=== PATIENT | female | born 1995 | race Caucasian/White ===

== ENCOUNTER → 2017-07-01 | Outpatient (CLI) | payer BC, OTHER ==
[~2017-07-01] MED LIST: ATOV250T PO; CYAN500T PO; ERGO500011 PO; LEVO1IUD INT UTER
--- NOTE | 2017-07-01 13:53 | DIAGNOSTIC IMAGING REPORT ---
VENOUS DOPPLER LWR EXT BILA CLINICAL HISTORY: 21 years-old Female presenting with SWELLING OF LEFT LOWER EXTREMITY. TECHNIQUE: Real-time grayscale and color and spectral Doppler ultrasound imaging of the veins of the bilateral lower extremities was performed. Compression and augmentation were also utilized. COMPARISON: None. FINDINGS: Right: Common femoral vein: Patent. Greater saphenous vein: Patent. Deep femoral vein: Patent. Femoral vein: Patent. Popliteal vein: Patent. Calf veins: Patent. Left: Common femoral vein: Patent. Greater saphenous vein: Patent. Deep femoral vein: Patent. Femoral vein: Patent. Popliteal vein: Patent. Calf veins: Patent. Other: None. IMPRESSION: No evidence of deep venous thrombosis. Electronically signed by: Galen Ayala M.D. 07/01/2017 1:52 PM Dictated Date/Time: 07/01/2017 1:50 PM
== END | disposition home or self-care (01) ==
LOC: C.ULTRBC 12:44
PROVIDERS: ATTEND Student in an Organized Health Care Education/Training Program
DX: M79.89 Other specified soft tissue disorders (principal); Z78.9 Other specified health status

== ENCOUNTER 2017-07-03 16:27 | Emergency (ER) | payer OTHER ==
[~2017-07-03] VITALS: Ht 167.6 cm; Wt 79.8 kg
[2017-07-03 16:37] VITALS: TEMP 36.8; Ht 167.6 cm; Wt 79.8 kg
[2017-07-03] MEDS ORDERED: CYAN500T PO (18:24)
[2017-07-03] MEDS ORDERED: ERGO500011 PO (18:24)
[2017-07-03] MEDS ORDERED: LEVO1IUD INT UTER (18:24)
[2017-07-03] MEDS ORDERED: ATOV250T PO (18:24)
--- NOTE | 2017-07-03 18:44 | EMERGENCY ROOM VISIT NOTE ---
History First contact with patient: 17:28 Chief Complaint: CHEST PAIN Stated Complaint: CHEST PAIN Nursing Triage Summary: Patient is here on vaction from [facility] in [facility]. Flew here on the , now with chest pain and left leg swelling. Had an ultrasound negative for DVT here for continued evaluation History of Present Illness The patient is a 21 year old female who presents to the Emergency Room with complaints of chest pain. She was sent here for PE workup from her PCP. She started having chest pain one week ago. It was sudden in onset. It is located in her upper left chest. It started one week ago. It was sudden in onset. It is a sharp stabbing pain that does not radiate. Nothing makes the pain worse (ie. exertion, deep inhalation or movements). The pain lasts for 1-2 hours at a time and is intermittent. Nothing makes the pain better and she rates it as a 3-4/10 in severity. Of note she had left calf pain 10 days ago and had an ultrasound on Friday which did not show any DVT. On June 16 she took a 15hr flight from [facility]. She has an IUD in place. She has no family history of clots. Review of Systems CONSTITUTIONAL: No fever, chills, sweats or night sweats. No recent infections. No weight loss or weight gain. NEUROLOGIC: No headaches, dizziness or syncopal episodes. HEENT: No hearing or visual changes. No sinus or nasal issues. No mouth sores, thrush or oral lesions. CARDIOVASCULAR: No chest pain or palpitations. RESPIRATORY: No SOB, dyspnea, cough or hemoptysis. GASTROINTESTINAL: No nausea, vomiting, diarrhea, constipation, reflux, melena or hematochezia. GENITOURINARY: No dysuria, frequency, urgency, incontinence or hematuria. MUSCULOSKELETAL: no joint pain or muscle pain SKIN: No rashes or skin lesions. No hair loss or nail changes. HEMATOLOGIC: No bleeding or abnormal bruising Past Medical/Surgical History none Family History no family history of blood clots or PR Social History Smoking Status: Never Smoker Alcohol Use: occasionally Drug Use: none Housing Status: lives alone Occupation Status: employed Current/Historical Medications Scheduled Atovaquone-Proguanil Hcl (Malarone), 1 TAB PO DAILY Cyanocobalamin (Vitamin B-12), 500 MCG PO DAILY Ergocalciferol (Vitamin D 31591 Unit), 50,000 INTER.UNIT PO WK Levonorgestrel (Iud) (Olimpia), 1 EA INT UTER UD Allergies Sulfa Physical Exam Vital Signs Date Time Temp Pulse Resp B/P (MAP) Pulse Ox O2 Delivery O2 Flow Rate FiO2 07/03/17 18:55 79 18 113/71 98 Room Air 07/03/17 18:37 84 07/03/17 16:37 36.8 91 16 136/89 97 Room Air Physical Exam HEENT: Head - normocephalic and atraumatic. Pupils are equal, round, and reactive to light. Nose - moist nasal mucosa without discharge. Mouth - moist buccal mucosa. Oropharynx is nonerythematous and there is no tonsillar exudate or edema noted. Neck: Supple; no JVD, nuchal rigidity, cervical lymphadenopathy, or auscultated bruits. Heart: Regular rate and rhythm. There is a normal S1 and S2 with no murmurs, clicks, or gallops appreciated. Lungs: Clear to auscultation bilaterally with no wheezes, rales, or rhonchi. Abdomen: Soft, completely nontender, nondistended, with good bowel sounds. There are no palpable pulsatile masses or hepatosplenomegaly. There is no guarding, rigidity, or rebound noted. Extremities: No evidence of cyanosis, clubbing, or edema. There are easily palpable peripheral pulses. there is no pain to palpation of the patient calves , there is no calf swelling Neuro:The patient is awake and alert, oriented to day, time, and place. Medical Decision & Procedures Laboratory Results Test 07/03/17 18:50 D-Dimer 270 ug/L FEU (0-500) ECG Indication: chest pain Rhythm: normal sinus ED Course 1799- patient was seen at the bedside and a full history and examination were performed 1835- case was discussed with Dr. Rodriguez and due to patients low risk of PE a D-Dimer was ordered 1999- d dimer returned as normal and therefore a CXR was ordered. patient was reassessed and was in no acute distress 2037- patients CXR returned as normal. patient was spoken to and was in agreement to being discharged Medical Decision Prior records/ancillary studies reviewed. Triage Nursing notes reviewed. Additional history obtained from []. The patient's history was concerning for chest pain. Differential diagnosis: Etiologies such as cardiac ischemia, aortic dissection, pulmonary embolism, pneumonia, pneumothorax, musculoskeletal, infections, pericarditis, myocarditis , esophageal rupture, gastrointestinal, as well as others were entertained. Patient had a D-Dimer as well as a CXR which were both normal. Patients vitals were unremarkable while in the ED and the patient was in no acute distress. The patient was sent home with follow up with her PCP Impression Primary Impression: Chest wall pain Departure Information Dispostion Home / Self-Care Condition GOOD Referrals More [email or web address] (PCP) Patient Instructions My [facility] Additional Instructions We did a D-dimer and a CXR and both these results returned as normal. The D dimer results was 270 Please follow up with your PCP for further workup If you experience any worsening chest pain, shortness of breath or palpitations then please come back to the emergency department
--- NOTE | 2017-07-03 19:19 | EMERGENCY ROOM VISIT NOTE ---
History First contact with patient: 17:28 Chief Complaint: CHEST PAIN Stated Complaint: CHEST PAIN Nursing Triage Summary: Patient is here on vaction from [facility] in [facility]. Flew here on the , now with chest pain and left leg swelling. Had an ultrasound negative for DVT here for continued evaluation History of Present Illness The patient is a 21 year old female who presents to the Emergency Room with complaints of intermittent left chest pain. Patient recently had an outpatient ultrasound of her lower extremity that was negative for DVT. Patient here visiting from [facility] and scheduled to fly back soon. Pt takes prophylactic malaria medication. IUD in place. Patient referred to the ER out of concern for possible PE. No recent URI symptoms, no f/c. No cough or SOB. Unable to pinpoint triggers or pattern to intermittent pain. Pain sharp when present and nonradiating. Review of Systems See HPI for pertinent positives & negatives. A total of 10 systems reviewed and were otherwise negative. Social History Smoking Status: Never Smoker Alcohol Use: occasionally Drug Use: none Housing Status: lives alone Occupation Status: employed Current/Historical Medications Scheduled Atovaquone-Proguanil Hcl (Malarone), 1 TAB PO DAILY Cyanocobalamin (Vitamin B-12), 500 MCG PO DAILY Ergocalciferol (Vitamin D 92896 Unit), 50,000 INTER.UNIT PO WK Levonorgestrel (Iud) (Olimpia), 1 EA INT UTER UD Physical Exam Vital Signs Date Time Temp Pulse Resp B/P (MAP) Pulse Ox O2 Delivery O2 Flow Rate FiO2 07/03/17 20:40 80 18 109/77 99 Room Air 07/03/17 18:55 79 18 113/71 98 Room Air 07/03/17 18:37 84 07/03/17 16:37 36.8 91 16 136/89 97 Room Air Physical Exam GENERAL: alert, well appearing, well nourished, no distress, non-toxic LUNGS: Clear to auscultation. Normal chest wall mechanics HEART: no murmurs, S1 normal and S2 normal ABDOMEN: abdomen soft, non-tender, normo-active bowel sounds, no masses, no rebound or guarding. BACK: Back is symmetrical on inspection and there is no deformity, no midline tenderness, no CVA tenderness. SKIN: no rashes and no bruising UPPER EXTREMITIES: upper extremities are grossly normal. Normal range of motion. LOWER EXTREMITIES: No pitting edema. Normal range of motion. NEURO EXAM: Normal sensorium, cranial nerves II-XII grossly intact, normal speech, no gross weakness of arms, no gross weakness of legs. Gross sensation intact. Medical Decision & Procedures ER Provider Diagnostic Interpretation: CHEST 2 VIEWS ROUTINE CLINICAL HISTORY: Atypical chest pain COMPARISON STUDY: No previous studies for comparison. FINDINGS: The cardiac and mediastinal contours are normal. There is no evidence of focal pulmonary consolidation. There is no evidence of failure. No pleural effusions are visualized.[ IMPRESSION: No active disease in the chest. Electronically signed by: Josh Adames M.D. 07/03/2017 8:29 PM Dictated Date/Time: 07/03/2017 8:28 PM Laboratory Results Test 07/03/17 18:50 D-Dimer 270 ug/L FEU (0-500) ECG Indication: chest pain Rate (beats per minute): 81 Rhythm: normal sinus Findings: no acute ischemic change Medical Decision Patient well-appearing here and referred in for possible evaluation for possible PE. Patient with negative outpatient Doppler, and intermittent left upper chest wall pain. No recent change in activity or trauma. Patient denies any recent cough or cold symptoms to suggest pleurisy, pericarditis, myocarditis. Heart score 0. Patient low risk [place], however despite recent long flight, d-dimer was checked and was negative. Discussed with patient possible etiology, symptoms to watch and return for, she verbalized understanding was agreeable with plan. Medication Reconcilliation Current Medication List: was personally reviewed by me Blood Pressure Screening Patient's blood pressure: Normal blood pressure Impression Primary Impression: Chest pain Departure Information Dispostion Home / Self-Care Condition GOOD Referrals No Doctor, Assigned (PCP) Patient Instructions My [facility] Problem Qualifiers Primary Impression: Chest pain Chest pain type: unspecified Qualified Codes: R07.9 - Chest pain, unspecified
--- NOTE | 2017-07-03 20:30 | DIAGNOSTIC IMAGING REPORT ---
CHEST 2 VIEWS ROUTINE CLINICAL HISTORY: Atypical chest pain COMPARISON STUDY: No previous studies for comparison. FINDINGS: The cardiac and mediastinal contours are normal. There is no evidence of focal pulmonary consolidation. There is no evidence of failure. No pleural effusions are visualized.[ IMPRESSION: No active disease in the chest. Electronically signed by: Josh Adames M.D. 07/03/2017 8:29 PM Dictated Date/Time: 07/03/2017 8:28 PM
[2017-07-03 20:40] VITALS: BP 109/77; PULSE 80; O2SAT 99
== END 2017-07-03 20:42 | disposition home or self-care (01) ==
LOC: C.EDB 16:29 → C.EDA 20:42
DX: R07.9 Chest pain, unspecified (principal); Z79.899 Other long term (current) drug therapy; Z88.2 Allergy status to sulfonamides